=== PATIENT | male | born 1975 | race Two or more races ===

== ENCOUNTER 2017-04-12 22:19 | Emergency (ER) | payer SELFPAY ==
[2017-04-12 22:27] VITALS: BMI 20.5
[2017-04-12 22:43] VITALS: RESP 20; TEMP 98
--- NOTE | 2017-04-12 22:49 | ED PDOC ---
Arrival/HPI - General Chief Complaint: Dizziness/Lightheaded Time Seen by Provider: 04/12/17 22:30 Historian: Patient - History of Present Illness Narrative History of Present Illness (Text): 04/12/17 22:46 Farhan Downey is a 41 year old male, whose past medical history includes alcohol abuse, who presents to the Emergency department for public intoxication tonight. Patient admits to drinking. Patient denies chest pain, shortness of breath, headache, fever, chills, cough, nausea, vomiting, diarrhea, abdominal pain, or any other complaints. Time/Duration: Prior to Arrival Symptom Course: Unchanged Activities at Onset: Light Context: Street Past Medical History - Provider Review Nursing Documentation Reviewed: Yes - Infectious Disease Hx of Infectious Diseases: None - Cardiac Hx Pacemaker: No - Neurological Hx Paralysis: No - Hematological/Oncological Hx Blood Transfusions: No Hx Blood Transfusion Reaction: No - Musculoskeletal/Rheumatological Hx Musculoskeletal Disorders: No - Psychiatric Hx Emotional Abuse: No Hx Physical Abuse: No Hx Substance Use: Yes - Surgical History Other/Comment: colonoscopy. R leg surgery. R arm surgery - Anesthesia Hx Anesthesia: Yes Hx Anesthesia Reactions: No Hx Malignant Hyperthermia: No - Suicidal Assessment Feels Threatened In Home Enviroment: No Family/Social History - Physician Review Nursing Documentation Reviewed: Yes Family/Social History: No Known Family HX Smoking Status: Former Smoker Hx Alcohol Use: Yes (NOW [id number]) Hx Substance Use: Yes Substance used: marijuana Allergies/Home Meds Allergies/Adverse Reactions: Allergies No Known Allergies Allergy (Verified 09/08/15 07:29) Home Medications: Home Meds Medication Instructions Recorded Confirmed Varenicline Tartrate [Chantix] 0.5 mg PO DAILY 09/08/15 04/12/17 Review of Systems - Physician Review All systems were reviewed & negative as marked: Yes - Review of Systems Constitutional: Other (intoxicated) Eyes: Normal ENT: Normal Respiratory: Normal. absent: SOB Cardiovascular: Normal. absent: Chest Pain Gastrointestinal: Normal. absent: Abdominal Pain Genitourinary Male: Normal. absent: Dysuria, Frequency, Hematuria, Urinary Output Changes Musculoskeletal: Normal. absent: Back Pain, Neck Pain Skin: Normal Neurological: Normal. absent: Headache, Dizziness Endocrine: Normal. absent: Diaphoresis Hemo/Lymphatic: Normal Psychiatric: Normal. absent: Anxiety, Depression, Suicidal Ideation Physical Exam Vital Signs Reviewed: Yes Vital Signs Temp Pulse Resp BP Pulse Ox 04/12/17 22:41 98.0 F 73 20 113/77 98 Temperature: Afebrile Blood Pressure: Normal Pulse: Regular Respiratory Rate: Normal Appearance: Positive for: Well-Appearing, Non-Toxic, Comfortable Pain Distress: None Mental Status: Positive for: Alert and Oriented X 3 Finger Stick Blood Glucose: 103 - Systems Exam Head: Present: Atraumatic, Normocephalic Pupils: Present: PERRL Extroacular Muscles: Present: EOMI Conjunctiva: Present: Normal Neck: Present: Normal Range of Motion Respiratory/Chest: Present: Clear to Auscultation, Good Air Exchange. No: Respiratory Distress, Accessory Muscle Use Cardiovascular: Present: Regular Rate and Rhythm, Normal S1, S2. No: Murmurs Abdomen: Present: Normal Bowel Sounds. No: Tenderness, Distention, Peritoneal Signs Back: Present: Normal Inspection Upper Extremity: Present: Normal Inspection. No: Cyanosis, Edema, Tenderness, Swelling Lower Extremity: Present: Normal Inspection. No: Edema Neurological: Present: GCS=15, CN II-XII Intact, Speech Normal Skin: Present: Warm, Dry, Normal Color. No: Rashes Psychiatric: Present: Alert, Intoxicated Medical Decision Making ED Course and Treatment: 04/12/17 22:35 Impression: 41 year old male presents to the Emergency department for public intoxication. Differential Diagnosis included but are not limited to: alcohol intoxication Plan: -- Alcohol Serum -- Reassess and disposition Progress Notes: Pt awake, alert, ambulating with steady gait. Clinically sober, in no acute distress. Pt stable for d/c. - Lab Interpretations Lab Results: Lab Results 04/12/17 23:00: Alcohol, Quantitative 236 H - Scribe Statement The provider has reviewed the documentation as recorded by the Scribe Yoly Flanagan under supervision of Malou Lopez. All medical record entries made by the Scribe were at my direction and personally dictated by me. I have reviewed the chart and agree that the record accurately reflects my personal performance of the history, physical exam, medical decision making, and the department course for this patient. I have also personally directed, reviewed, and agree with the discharge instructions and disposition. Disposition/Present on Arrival - Present on Arrival History of DVT/PE: No History of Uncontrolled Diabetes: No Urinary Catheter: No History of Decub. Ulcer: No History Surgical Site Infection Following: None - Disposition Diagnosis: Alcohol abuse Disposition: HOME/ ROUTINE Patient Problems: Current Active Problems Problem Status Onset Alcohol abuse Acute Discharge Instructions (ExitCare): Alcohol Intoxication (ED) Referrals: Jeny Johnson, [Primary Care Provider] - Follow up with primary Forms: [employer] (Faroese)
[2017-04-13 02:18] VITALS: BP 115/70; PULSE 75; O2SAT 97
== END 2017-04-13 01:58 | disposition home or self-care (01) ==
LOC: ED 22:19
DX: F10.10 Alcohol abuse, uncomplicated (principal); Z87.891 Personal history of nicotine dependence
CPT/HCPCS: 99284; G0480